=== PATIENT | female | born 1985 | race Caucasian/White ===

== ENCOUNTER 2017-07-28 05:59 | Inpatient (IN) | payer BC ==
[2017-07-28] MEDS ORDERED: Ondansetron HCl/PF 4 MG/2 ML Vial IVP PRN ×3 (06:39→20:21)
[2017-07-28] MEDS ORDERED: Ibuprofen 800 MG TAB PO PRN (06:39)
[2017-07-28] MEDS ORDERED: Acetaminophen/Codeine 30-300mg Tablet PO PRN ×4 (06:39→20:21)
[2017-07-28] MEDS ORDERED: Promethazine HCl 25 MG/ML VIAL IM PRN ×2 (06:39→10:51)
[2017-07-28] MEDS ORDERED: Lidocaine 1% (PF) 30 ML VIAL SC PRN (06:39)
[2017-07-28] MEDS ORDERED: LR 500 ML/Oxytocin 10 units 500 ML IV SCH ×2 (06:39)
[2017-07-28] MEDS: Lactated Ringer's 1,000 ML IV SCH ×3 (06:40→13:33)
[2017-07-28 06:41] VITALS: BMI 28.6
[2017-07-28 07:07] LABS: Hemoglobin 10.8 g/dL (12.0-16.0); Mean Corpuscular HGB CONC 33.8 g/dL (32.0-36.0); Mean Corpuscular Hemoglobin 26.9 pg (27.0-31.0); Mean Corpuscular Volume 79.4 fl (81.0-99.0); Platelet Count 298 thou/uL (130-400); RBC Distribution Width 13.8 % (11.5-14.5); Red Blood Cell (RBC) Count 4.02 mill/uL (4.20-5.40); White Blood Cell (WBC) Count 8.3 thou/uL (4.8-10.8)
[2017-07-28 07:39] LABS: HBSAg Index 0.16 S/CO (0-0.99); Hep B Surf Ag Non-Reactive S/CO (NonReactive)
--- NOTE | 2017-07-28 08:58 | PDOC.LDHP ---
Labor and Delivery H&P Chief complaint: scheduled induction HPI: Pt is a 31yo @ 39.1 here for elective IOL. Current gestational age (weeks): 39 Due date: 08/03/17 Dating criteria: last menstrual period, first trimester ultrasound Grav: 2 Para: 1 OB History Details: x 1 Current complications: none Abnormal US findings: No Current medications: pre- vitamins Previous surgical history: none Allergies/Adverse Reactions: Allergies Allergy/AdvReac Type Severity Reaction Status Date / Time No Known Allergies Allergy Unverified 07/28/17 06:32 Social history: tobacco use (quit at start of preg) - Physical Exam Vital signs reviewed and normal: yes General: breathing through contractions Heart: RRR Lungs: nonlabored breathing Abdomen: NTTP Extremeties: trace edema FHT: category 1 - Vaginal Exam cm dilated: 2 Effacement: 25% Station: -2 - OB Labs Blood type: AB RH: positive Antibody Screen: negative HIV: negative RPR: negative HEPSAg: negative 1 hour GCT: positive 3 hour GTT: negative Rubella: immune - Assessment L&D Assessment: elective induction at term - Plan Plan: admit to L&D, cervical ripening, labor augmentation if indicated, informed consent obtained, anesthesia consult for pain management -: A/P: 31yo @ 39.1 weeks here for elective IOL. FHT reassuring, AROM on admit exam, clear fluid.
[2017-07-28] MEDS ORDERED: Bupivacaine 0.5% 20 ML, Fentanyl 400 MCG in Sodium Chloride 0.9% 72 ML EPIDURAL SCH (10:00)
[2017-07-28] MEDS ORDERED: DISCONTINUE ALL PREVIOUS NARCOTICS FS SCH (10:00)
[2017-07-28] MEDS ORDERED: Eucerin (Mineral Oil/Petrolatum,White) 30 gm Jar TOP PRN (10:51)
[2017-07-28] MEDS ORDERED: ePHEDrine/0.9% NaCl/PF SYRINGE 50 mg/10 ml SLOW IVP PRN (10:51)
[2017-07-28] MEDS ORDERED: diphenhydrAMINE 50 MG/ML VIAL IVP PRN (10:51)
[2017-07-28] MEDS ORDERED: Naloxone HCl 0.4 mg/ml Vial IVP PRN ×2 (10:51)
[2017-07-28] MEDS ORDERED: Acetaminophen 325 MG TAB PO PRN (10:51)
[2017-07-28] MEDS ORDERED: Lactated Ringer's 500 ML IV PRN (10:51)
[2017-07-28] MEDS ORDERED: Fentanyl 4mcg/Marcaine 0.1% Cassette 100 ML EPIDURAL SCH (11:00)
[2017-07-28] MEDS ORDERED: Communication Order-Pharmacy FS SCH (11:00)
[2017-07-28] MEDS ORDERED: Bupivacaine/Epinephrine 0.25% 30 ML VIAL ONE (11:11)
--- NOTE | 2017-07-28 13:15 | PDOC.LDPN ---
Labor & Delivery Progress Note - Subjective Subjective: comfortable - Objective Vital signs reviewed and normal: yes General: resting, breathing through contractions Dilation: 6 Effacement: 90% Station: 0 FHT: category 1 [place] contractions every: 2 AROM: clear fluid - Assessment (1) 39 weeks gestation of Code(s): Z3A.39 - 39 WEEKS GESTATION OF Current Visit: Yes Status : Acute (2) Normal Code(s): Z34.90 - ENCNTR FOR SUPRVSN OF NORMAL , UNSP, UNSP TRIMESTER Current Visit: Yes Status: Acute Plan: continue plan of care
[2017-07-28] MEDS: LR / Pitocin 40 units/1000 ml 1,000 ML IV PRN ×2 (16:41→18:32)
--- NOTE | 2017-07-28 16:51 | PDOC.OPDEL ---
OB Operative/Delivery Note Delivery Dr/Surgeon: Juan Pre-Delivery Diagnosis: elective induction Procedure/Post Delivery Dx: spontaneous vaginal delivery Weeks gestation: 39 - Findings A Sex: female - 1 min: 8 - 5 min: 9 - Additional Findings/Plan Placenta delivered: spontaneous Repaired Obstetrical Laceration: none Estimated blood loss: 250ml Compilations/Other Findings: mild shoulder dystocia w left shoulder anterior, relieved w McRobert's and suprapubic Post delivery plan: routine recovery
[2017-07-28] MEDS ORDERED: Benzocaine/Menthol 20-0.5% 60 ML CAN TOP PRN (20:21)
[2017-07-28] MEDS ORDERED: LR / Pitocin 40 units/1000 ml 1,000 ML IV SCH (20:21)
[2017-07-28] MEDS ORDERED: Preparation H Ointment 28 GM TUBE PR PRN (20:21)
[2017-07-28] MEDS ORDERED: Milk Of Magnesia 30 ML UDCUP PO PRN (20:21)
[2017-07-28] MEDS ORDERED: Bisacodyl 10 MG SUPP PR PRN (20:21)
[2017-07-28] MEDS ORDERED: Ferrous Sulfate 325 MG TAB PO SCH (20:21)
[2017-07-28] MEDS ORDERED: diphenhydrAMINE 25 MG CAP PO PRN (20:21)
[2017-07-28] MEDS: Ibuprofen 800 MG TAB PO SCH (22:59)
[2017-07-28] MEDS: Docusate Calcium (SURFAK) 240 MG CAP PO SCH (22:59)
[2017-07-29] MEDS: Ibuprofen 800 MG TAB PO SCH ×2 (06:50→14:05)
[2017-07-29] MEDS: Docusate Calcium (SURFAK) 240 MG CAP PO SCH (08:54)
[2017-07-29] MEDS ORDERED: Prenatal Vitamin 1 TAB PO SCH (09:00)
[2017-07-29 12:05] VITALS: TEMP 99
[2017-07-29 12:15] VITALS: BP 118/74
== END 2017-07-29 18:15 | disposition home or self-care (01) | DRG 775 ==
LOC: L&D 05:59 → 3SW 19:58
PROVIDERS: ADMIT Obstetrics & Gynecology; ATTEND Obstetrics & Gynecology
PROC: 10E0XZZ Delivery of Products of Conception, External Approach (ICD-10-PCS; principal; 2017-07-28)
PROC: 10907ZC Drainage of Amniotic Fluid, Therapeutic from Products of Conception, Via Natural or Artificial Opening (ICD-10-PCS; 2017-07-28)
PROC: 3E033VJ Introduction of Other Hormone into Peripheral Vein, Percutaneous Approach (ICD-10-PCS; 2017-07-28)
DX: O66.0 Obstructed labor due to shoulder dystocia (principal); Z37.0 Single live birth; Z3A.39 39 weeks gestation of pregnancy; Z87.891 Personal history of nicotine dependence
CPT/HCPCS: 51702; 85027; 86850; 86900; 86901; 87340; J0595; J2001; J2405; J3010; J3490; J7050; J7120